=== PATIENT | male | born 1970 ===

== ENCOUNTER 2017-12-25 11:23 | Emergency (ER) | payer OTHER ==
[~2017-12-25] VITALS: Ht 170.2 cm; Wt 52.2 kg
[2017-12-25 11:23] VITALS: BP 123/80
== END 2017-12-25 11:44 | disposition short-term general hospital (02) ==
LOC: ER 11:23
DX: S09.93XA Unspecified injury of face, initial encounter (principal); F17.210 Nicotine dependence, cigarettes, uncomplicated; Y08.89XA Assault by other specified means, initial encounter; Y93.89 Activity, other specified; Y99.8 Other external cause status; Y92.89 Other specified places as the place of occurrence of the external cause